=== PATIENT | male | born 2000 | race Caucasian/White ===

== ENCOUNTER 2020-08-14 21:15 | Emergency (ER) | payer SELFPAY ==
[~2020-08-14] VITALS: Ht 160 cm; Wt 61.7 kg
[2020-08-14 23:14] VITALS: BP 150/86
[2020-08-14] MEDS ORDERED: KETOROLAC TROMETH 60MG/2ML VIAL IM ONE (23:30)
== END 2020-08-14 23:49 | disposition home or self-care (01) ==
LOC: ER 21:15
DX: K04.7 Periapical abscess without sinus (principal); F17.200 Nicotine dependence, unspecified, uncomplicated
CPT/HCPCS: 96372; 99283; J1885